=== PATIENT | male | born 1980 | race Caucasian/White ===

== ENCOUNTER 2022-02-09 07:02 | Outpatient (CLI) | payer BC, SELFPAY ==
--- NOTE | 2022-02-09 07:15 | CRLHL7_ITS ---
For Patients: As a result of the Century Cures Act, medical imaging exams and procedure reports are released immediately into your electronic medical record. You may view this report before your referring provider. If you have questions, please contact your health care provider. Indication: Chronic pain. Technique: Multiplanar, multisequence MRI of the brain was performed without intravenous contrast. Comparison: None relevant available. Findings: The corpus callosum, pituitary gland and clivus appear intact. Craniocervical junction is preserved. There is no restricted diffusion. No intracranial hemorrhage. The ventricles are proportionate to the cerebral sulci. The 4th ventricle appears midline. The basal cisterns appear patent. No abnormal extra-axial fluid collection identified. Minimal scattered nonspecific foci of T2 FLAIR hyperintensity within the subcortical white matter. There is no intracranial mass, abnormal mass-effect or midline shift identified. Major intracranial vascular flow voids appear grossly intact. Both globes are preserved. Impression: 1. No acute intracranial process. 2. Minimal nonspecific foci of subcortical white matter T2 FLAIR hyperintensity. Differential considerations include sequela of migraine headaches or chronic ischemic microvascular disease. Dictated by Jimmie Aguilar MD @ 02/09/2022 10:26:50 AM (Electronically Signed)
== END 2022-02-09 07:03 | disposition home or self-care (01) ==
LOC: MRI 07:02
PROVIDERS: PCP Family Medicine; Visit Provider Family Medicine
DX: G89.29 Other chronic pain (principal); M79.18 Myalgia, other site
CPT/HCPCS: 70551

== ENCOUNTER 2022-03-01 07:04 | Outpatient (CLI) | payer BC, SELFPAY ==
--- NOTE | 2022-03-01 07:15 | CRLHL7_ITS ---
For Patients: As a result of the Century Cures Act, medical imaging exams and procedure reports are released immediately into your electronic medical record. You may view this report before your referring provider. If you have questions, please contact your health care provider. Indication: Cervical spine pain. Technique: MRI of the cervical spine was performed without the use of intravenous contrast. Comparison: Cervical spine radiographs 02/15/2022. MR brain 01/10/2022. Findings: The cervical vertebral body heights are maintained without fracture. No marrow infiltrating process. Disc space heights appear preserved. Slight reversal to the cervical lordosis. No abnormal cord signal. C1-2: Small calcification along the posterior longitudinal ligament. No spinal canal or neural foraminal narrowing. C2-3: No spinal canal or neural foraminal narrowing. C3-4: No spinal canal or neural foraminal narrowing. C4-5: No spinal canal or neural foraminal narrowing. C5-6: Minimal annular bulge without spinal canal narrowing. Small annular fissure. Slight right uncovertebral joint hypertrophy with mild right neural foraminal narrowing. Left neural foramina appears patent. C6-7: Minimal central disc protrusion with annular fissure. No spinal canal or neural foraminal narrowing. C7-T1: No spinal canal or neural foraminal narrowing. Partially visualized STIR hyperintensity within the left cerebellar white matter which may relate to prior described white-matter disease on MRI 01/10/2022. Impression: 1. At C5-6, mild right neural foraminal narrowing. 2. Otherwise minimal spondylosis without spinal canal or neural foraminal narrowing. 3. No abnormal cord signal. Dictated by Jimmie Aguilar MD @ 03/01/2022 7:59:31 AM (Electronically Signed)
== END 2022-03-01 07:05 | disposition home or self-care (01) ==
PROVIDERS: PCP Family Medicine; Visit Provider Family Medicine
DX: M54.2 Cervicalgia (principal)
CPT/HCPCS: 72141

== ENCOUNTER 2022-04-26 12:05 | Outpatient (CLI) | payer BC, SELFPAY ==
[2022-04-29 21:52] LABS: Calculi Mass 50 mg
== END 2022-04-26 12:06 | disposition home or self-care (01) ==
LOC: LONREF 12:05
PROVIDERS: PCP Family Medicine; Visit Provider Family Medicine
DX: K76.0 Fatty (change of) liver, not elsewhere classified (principal)
CPT/HCPCS: 82365

== ENCOUNTER 2023-02-24 16:04 | Outpatient (CLI) | payer BC, SELFPAY | END 2023-02-24 16:05 | disposition home or self-care (01) | LOC: LKVREF 16:06 | PROVIDERS: PCP Family Medicine; Visit Provider Family Medicine | DX: I49.9 Cardiac arrhythmia, unspecified (principal); K76.0 Fatty (change of) liver, not elsewhere classified | CPT/HCPCS: 80053 ==

== ENCOUNTER 2024-06-01 09:34 | Outpatient (CLI) | payer BC, SELFPAY | END 2024-06-01 09:35 | disposition home or self-care (01) | LOC: LKVREF 09:38 | PROVIDERS: PCP Family Medicine; Visit Provider Family Medicine | DX: I49.9 Cardiac arrhythmia, unspecified (principal); K21.9 Gastro-esophageal reflux disease without esophagitis; K76.0 Fatty (change of) liver, not elsewhere classified; M79.89 Other specified soft tissue disorders; R51.9 Headache, unspecified; R22.9 Localized swelling, mass and lump, unspecified | CPT/HCPCS: 80053; 80061 ==

== ENCOUNTER 2024-10-18 15:24 | Outpatient (CLI) | payer BC, SELFPAY | END 2024-10-18 15:25 | disposition home or self-care (01) | LOC: NFLDREF 10-22 01:08 | PROVIDERS: PCP Family Medicine; Referring Provider Family Medicine; Visit Provider Family Medicine | DX: I49.9 Cardiac arrhythmia, unspecified (principal); R53.83 Other fatigue | CPT/HCPCS: 84443 ==

== ENCOUNTER 2024-11-21 15:25 | Outpatient (CLI) | payer BC, SELFPAY ==
--- NOTE | 2024-11-28 08:20 | W.PM.SLEEP ---
Sleep Study Details Details Interpreting Provider: Lelo Date of Sleep Study: 11/21/24 Sleep Study Details: STUDY TYPE:? Home unattended ? BMI:? 34.8 ORDERING PROVIDER:Dexter Lind INDICATION:? Concern for sleep apnea ? SLEEP SUMMARY: 475 minutes monitored RESPIRATORY SUMMARY:? AHI 8.8 Low oxygen 89 Snoring 94.1% PERIODIC LIMB MOVEMENTS OF SLEEP: Not recorded CARDIAC:? Range 49-99, mean 61.4 beats per minute IMPRESSION:? Mild obstructive sleep apnea RECOMMENDATION: Treatment options include CPAP, dental appliance and/or airway expansion surgery.
== END 2024-11-21 15:26 | disposition home or self-care (01) ==
LOC: SLEEP 15:26
PROVIDERS: PCP Family Medicine; Visit Provider Otolaryngology
DX: G47.33 Obstructive sleep apnea (adult) (pediatric) (principal)
CPT/HCPCS: 95806

== ENCOUNTER 2025-06-28 16:19 | Outpatient (CLI) | payer BC, SELFPAY | END 2025-06-28 16:20 | disposition home or self-care (01) | LOC: LKVREF 16:20 | PROVIDERS: PCP Family Medicine; Visit Provider Family Medicine | DX: I49.9 Cardiac arrhythmia, unspecified (principal); K76.0 Fatty (change of) liver, not elsewhere classified | CPT/HCPCS: 80053; 80061; 82248 ==